=== PATIENT | male | born 1955 | race Caucasian/White ===

== ENCOUNTER 2020-08-05 16:02 | Emergency (ER) | payer MEDICARE ==
[~2020-08-05 16:02] MED LIST: CEFUROXIME500 MG PO; LEVAQUIN750 MG PO
[2020-08-05] MEDS ORDERED: CYCLOBENZAPRINE5 MG PO (18:00)
[2020-08-05] MEDS ORDERED: MOBIC15 MG PO (18:00)
== END 2020-08-05 18:25 | disposition home or self-care (01) ==
LOC: ER1 16:02
DX: S22.41XA Multiple fractures of ribs, right side, initial encounter for closed fracture (principal); E11.9 Type 2 diabetes mellitus without complications; I10 Essential (primary) hypertension; F17.200 Nicotine dependence, unspecified, uncomplicated; W22.8XXA Striking against or struck by other objects, initial encounter; Y92.009 Unspecified place in unspecified non-institutional (private) residence as the place of occurrence of the external cause
CPT/HCPCS: 71111; 99283